=== PATIENT | female | born 1985 | race African-American/Black ===

== ENCOUNTER 2017-03-07 15:10 | Emergency (ER) | payer MEDICAID, OTHER ==
--- NOTE | 2017-03-07 15:29 | ER Document Report ---
ED Psych Disorder / Suicide - General Chief Complaint: Psych Problem Stated Complaint: VAGINAL PAIN Time Seen by Provider: 03/07/17 15:21 Mode of Arrival: Ambulatory Information source: Patient TRAVEL OUTSIDE OF THE [place] IN LAST 30 DAYS: No - HPI Patient complains to provider of: Bizarre behavior Associated symptoms: Auditory hallucinations Notes: Is a 31-year-old female who presents to the emergency room complaining of "my spirit being enslaved", stating that she is unable to control her own body, that they have "taken out my eardrums", "unholed my arm holes", and that she is unable to "use my own conscience", she is requesting a CAT scan to show brain changes that may have occurred because of these spirits taking over her mind and body, she also states she is having some pelvic pain because the voices have told her that they are "making me a harlet' - Related Data Allergies/Adverse Reactions: No Known Allergies Allergy (Verified 03/07/17 15:16) Past Medical History - General Information source: Patient - Social History Smoking Status: Unknown if Ever Smoked Drug Abuse: Marijuana Family History: Arthritis, CVA, Hypertension. denies: CAD, DM, Hyperlipidemia, Malignancy, Thyroid Disfunction Renal/ Medical History: Denies: Hx Peritoneal Dialysis Musculoskeltal Medical History: Reports Hx Musculoskeletal Trauma Traumatic Medical History: Reports: Hx Fractures - left arm - Immunizations Hx Diphtheria, Pertussis, Tetanus Vaccination: Yes Review of Systems - Review of Systems Constitutional: No symptoms reported EENT: No symptoms reported Cardiovascular: No symptoms reported Respiratory: No symptoms reported Gastrointestinal: No symptoms reported Genitourinary: No symptoms reported Female Genitourinary: Other - pelvic pressure Musculoskeletal: No symptoms reported Skin: No symptoms reported Hematologic/Lymphatic: No symptoms reported Neurological/Psychological: See HPI -: Yes All other systems reviewed and negative Physical Exam - Vital signs Vitals: Temp Pulse Resp BP Pulse Ox 99.0 F 82 20 104/59 L 96 03/07/17 15:15 03/07/17 15:15 03/07/17 15:15 03/07/17 15:15 03/07/17 15:15 Interpretation: Normal - General General appearance: Appears well, Alert - HEENT Head: Normocephalic, Atraumatic Eyes: Normal Pupils: PERRL - Respiratory Respiratory status: No respiratory distress Chest status: Nontender Breath sounds: Normal Chest palpation: Normal - Cardiovascular Rhythm: Regular Heart sounds: Normal auscultation Murmur: No - Abdominal Inspection: Normal Distension: No distension Bowel sounds: Normal Tenderness: Nontender Organomegaly: No organomegaly - Back Back: Normal, Nontender - Extremities General upper extremity: Normal inspection, Nontender, Normal color, Normal ROM , Normal temperature General lower extremity: Normal inspection, Nontender, Normal color, Normal ROM , Normal temperature, Normal weight bearing. No: Bang's sign - Neurological Neuro grossly intact: Yes Cognition: Normal Orientation: AAOx4 Nona Coma Scale Eye Opening: Spontaneous Nona Coma Scale Verbal: Oriented Nona Coma Scale Motor: Obeys Commands Nona Coma Scale Total: 15 Speech: Normal Motor strength normal: LUE, RUE, LLE, RLE Sensory: Normal - Psychological Associated symptoms: Auditory hallucinations, Labile, Paranoid, Other - delusional - Skin Skin Temperature: Warm Skin Moisture: Dry Skin Color: Normal Course - Re-evaluation Re-evalutation: 03/08/17 10:22 IVC Paperwork has been completed on patient and she will remain in the emergency room for further evaluation and treatment as recommended by mental health team - Vital Signs Vital signs: Temp Pulse Resp BP Pulse Ox 98.0 F 80 15 125/86 H 96 03/08/17 06:30 03/08/17 06:30 03/08/17 06:30 03/08/17 06:30 03/08/17 06:30 - Laboratory Result Diagrams: 03/07/17 15:30 03/07/17 15:30 Laboratory results interpreted by me: 03/07/17 03/07/17 03/07/17 15:30 15:30 15:30 MCH 26.3 L MCHC 31.9 L RDW 15.4 H Urine Ketones TRACE H Urine Urobilinogen 2.0 H Ur Leukocyte Esterase TRACE H Salicylates < 1.0 L Acetaminophen < 10 L - EKG Interpretation by Ct EKG shows normal: Sinus rhythm Rate: Normal Rhythm: NSR Discharge - Discharge Clinical Impression: Auditory hallucinations Schizophrenia Qualifiers: Schizophrenia type: paranoid schizophrenia Qualified Code(s): F20.0 - Paranoid schizophrenia Condition: Stable Disposition: PSYCH HOSP/UNIT
[2017-03-07 16:02] LABS: ABSOLUTE EOSINOPHILS # (AUTO) 0.2 10^3/uL (0.0-0.6); ABSOLUTE LYMPHOCYTES (AUTO) 2.5 10^3/uL (0.5-4.7); ABSOLUTE MONOCYTES (AUTO) 0.4 10^3/uL (0.1-1.4); ABSOLUTE NEUT (AUTO) 2.8 10^3/uL (1.7-8.2); BASOPHILS % (AUTO) 0.6 % (0-2); EOSINOPHILS % (AUTO) 3.6 % (0-6); HEMATOCRIT 38.1 % (36.0-47.0); HEMOGLOBIN 12.1 g/dL (12.0-15.5); HGB HCT DIFFERENCE -1.8; MEAN CORPUSCULAR HEMOGLOBIN 26.3 pg (27.0-33.4); MEAN CORPUSCULAR HGB CONC 31.9 g/dL (32.0-36.0); MEAN CORPUSCULAR VOLUME 83 fl (80-97); MONOCYTES % (AUTO) 6.8 % (3-13); RED BLOOD COUNT 4.61 10^6/uL (3.72-5.28); RED CELL DISTRIBUTION WIDTH 15.4 % (11.5-14.0); WHITE BLOOD COUNT 5.9 10^3/uL (4.0-10.5)
[2017-03-07 16:03] LABS: AMORPHOUS SEDIMENT,URINE TRACE /HPF; APPEARANCE,URINE CLOUDY; BILIRUBIN,URINE NEGATIVE (NEGATIVE); GLUCOSE, URINE NEGATIVE (NEGATIVE); KETONES,URINE TRACE mg/dL (NEGATIVE); LEUKOCYTE ESTERASE,URINE TRACE (NEGATIVE); NITRITE,URINE NEGATIVE (NEGATIVE); PROTEIN,URINE NEGATIVE (NEGATIVE); URINE SPECIFIC GRAVITY 1.015
[2017-03-07 16:04] LABS: ALANINE AMINOTRANSFERASE 21 U/L (9-52); ALBUMIN 4.5 g/dL (3.5-5.0); ALKALINE PHOSPHATASE 65 U/L (38-126); ANION GAP 11 (5-19); ASPARTATE AMINO TRANSFERASE 15 U/L (14-36); BILIRUBIN,DIRECT 0.2 mg/dL (0.0-0.4); BILIRUBIN,TOTAL 0.5 mg/dL (0.2-1.3); BLOOD UREA NITROGEN 9 mg/dL (7-20); CALCIUM 9.6 mg/dL (8.4-10.2); CARBON DIOXIDE 24 mmol/L (22-30); CHLORIDE 104 mmol/L (98-107); CREATININE RESULT 0.91 mg/dL (0.52-1.25); GLUCOSE 83 mg/dL (75-110); POTASSIUM 4.3 mmol/L (3.6-5.0); SODIUM 138.5 mmol/L (137-145); TOTAL PROTEIN 7.3 g/dL (6.3-8.2)
[2017-03-07 16:06] LABS: ALCOHOL < 10 mg/dL (NONE DETECTED)
[2017-03-07 16:14] LABS: URINE BARBITURATES SCREEN NEGATIVE; URINE METHADONE SCREEN NEGATIVE; URINE OPIATES LOW NEGATIVE; URINE PHENCYCLIDINE SCREEN NEGATIVE
[2017-03-07] MEDS ORDERED: FLUOXETINE HCL 20 MG/5 ML UDCUP PO SCH (17:15)
[2017-03-07] MEDS: OLANZAPINE INJ/PF 10 MG SDV IM SCH (17:44)
[2017-03-07] MEDS ORDERED: BENZTROPINE MESYLATE INJ 2 MG/2 ML AMPULE IM ONE (20:45)
[2017-03-07] MEDS ORDERED: FLUOXETINE HCL 20 MG/5 ML UDCUP PO ONE (20:45)
[2017-03-08] MEDS ORDERED: LORAZEPAM INJ 2 MG/1 ML VIAL IM ONE (05:33)
--- NOTE | 2017-03-08 07:19 | PSYCHOLOGICAL NOTE ---
Psych Note - Psych Note Psych Note: Is a 31-year-old female who presents to the emergency room complaining of "my spirit being enslaved", stating that she is unable to control her own body, that they have "taken out my eardrums", "unholed my arm holes", and that she is unable to "use my own conscience", she is requesting a CAT scan to show brain changes that may have occurred because of these spirits taking over her mind and body, she also states she is having some pelvic pain because the voices have told her that they are "making me a harlet' Patient states she has been hearing voices since 2008. She describes an event immediately before she started hearing the voices of a "popping" sound in her ear where she states "the spirts entered" her body then. She states she does not recall any high stressors at the time and was working on her computer when it happened. She continues to explain that when the "spirits" started "harassing" her she went for assistance and was put on medication. She disclosed they went away but about 5 years about she was having a difficult time at work and felt she was being "harassed" by co-workers when the voices came back. She disclosed that she "is past wanting to hurt her self or being upset about it, it is just the way it is." she states the "spirits have been taking over her body parts" such as her brain, arms, knees, and "replaced the parts with themselves." She states they have started to use her electronic by hacking into them, so she when to the storage receipt poster to see if they could stop the spirit. She states they should be able to follow the electronic trail but they told her it was spiritual and they can only help with physical. She came to [facility] in the hopes of getting a CAT scan to prove the spirits are physical so the storage receipt poster will help; "because they (the spirits or voices) are harassing me all the time." The patient states the spirites can even enter others and make then lie "so others will not find out about them." She states when this happens the spirits make others lie so it looks like she is the one lying. Patient is alert and orientate to person, place, time and circumstance. Mood is euthymic with congruent affect; patient is very pleasant, smiling, calm, and polite. Patient denies suicidal and homicidal ideation. Patient discloses auditory hallucinations with mixed delusions consistently for the last 5 years ( unmedicated) with her first psychotic brake in 2008. Thought process is currently illogical, however organized and linear. Attention and concentration are currently good. insight, judgement are poor, impulse control appears to be good. schizophrenia impression/plan: patient is recommended to IVC. Patient discloses hallucinations and delusion that she has started to act on i.e went to the storage receipt poster to have them stop the "spirits." It is unclear what the patient will continue to do now that she is acting in response to her hallucinations and delusions. Patient has been unmedicated for many years, however she discloses after her first psychotic break, medications assisted in stopping her symptoms for a few years until a social stressor started her active symptoms again. Patient is recommended for inpatient treatment. Dr. Murphy was consulted on the care and management of this patient; attending physician is in agreement with recommendations and disposition.
[2017-03-08] MEDS: FLUOXETINE HCL 20 MG/5 ML UDCUP PO SCH (09:35)
[2017-03-08] MEDS: BENZTROPINE MESYLATE INJ 2 MG/2 ML AMPULE IM SCH ×2 (09:35→19:00)
[2017-03-08] MEDS: OLANZAPINE INJ/PF 10 MG SDV IM SCH ×2 (09:35→19:00)
--- NOTE | 2017-03-08 12:59 | EKG REPORT ---
SEVERITY:- BORDERLINE ECG - SINUS RHYTHM PROBABLE LEFT ATRIAL ABNORMALITY : Confirmed by: Vero Salinas MD 08-Mar-2017 12:59:01
--- NOTE | 2017-03-08 15:44 | ER Document Report ---
Doctor's Note Notes: 03/08/17 15:44 Patient has been sleeping comfortably most of the day, she is easily aroused with verbal stimuli, she denies any complaints at present time, no events overnight, chart was reviewed including lab and vital signs, patient will remain in the emergency room on IVC until further recommendations are placement options can be made with mental health team
--- NOTE | 2017-03-09 07:46 | ER Document Report ---
ED Psych Disorder / Suicide - General Chief Complaint: Psych Problem Stated Complaint: PSYCH EVAL Time Seen by Provider: 03/07/17 15:21 Mode of Arrival: Ambulatory TRAVEL OUTSIDE OF THE [place] IN LAST 30 DAYS: No - HPI Patient complains to provider of: Bizarre behavior, Other - Deluisonal and paranoid Suicide Risk Factors: Schizophrenia Normal mood: No Associated symptoms: Flight of ideas, Manic, Paranoid, Tangential speech Similar symptoms previously: Yes Notes: Re-evaluation conducted 03/08/2017 at 1006. Patient is a 31 year old female in the ED on IVC for psychosis (delusions, paranoia). She was kept to begin medications she had not been on in a year. This morning she was sleeping. She would not wake up. She did respond to gentle shake of her leg, barely opened eyes, rolled head to the opposite side, and continued sleeping. Mom had previously informed medical staff patient had not been sleeping. This clinician and the attending ED physician agreed to allow patient to get sleep. Per patient food safety auditor and medical staff patient would not wake up to take a shower or eat breakfast. She did take her medications when administered. Diagnosis: 295.90 (F20.9) Schizophrenia Impression/Plan: Recommendation to maintain IVC status. She presented in psychosis. Medications have been administered the past 2 days after not being on any for at least a year. She slept the past couple days which she needed given mother's report patient had not been sleeping. Consulted with Dr. Murphy regarding the management and care of patient. ED Doctor in agreement with recommendations. - Related Data Allergies/Adverse Reactions: No Known Allergies Allergy (Verified 03/07/17 15:16) Past Medical History - General Information source: Patient - Social History Smoking Status: Unknown if Ever Smoked Frequency of alcohol use: Social Drug Abuse: Marijuana Family History: Arthritis, CVA, Hypertension. denies: CAD, DM, Hyperlipidemia, Malignancy, Thyroid Disfunction Renal/ Medical History: Denies: Hx Peritoneal Dialysis Musculoskeltal Medical History: Reports Hx Musculoskeletal Trauma Traumatic Medical History: Reports: Hx Fractures - left arm Surgical Hx: Negative - Immunizations Hx Diphtheria, Pertussis, Tetanus Vaccination: Yes Physical Exam - Vital signs Vitals: Temp Pulse Resp BP Pulse Ox 99.0 F 82 20 104/59 L 96 03/07/17 15:15 03/07/17 15:15 03/07/17 15:15 03/07/17 15:15 03/07/17 15:15 Course - Vital Signs Vital signs: Temp Pulse Resp BP Pulse Ox 98.8 F 62 16 104/60 98 03/09/17 07:02 03/09/17 07:02 03/09/17 07:02 03/09/17 07:02 03/09/17 07:02 - Laboratory Result Diagrams: 03/07/17 15:30 03/07/17 15:30 Laboratory results interpreted by me: 03/07/17 03/07/17 03/07/17 15:30 15:30 15:30 MCH 26.3 L MCHC 31.9 L RDW 15.4 H Urine Ketones TRACE H Urine Urobilinogen 2.0 H Ur Leukocyte Esterase TRACE H Salicylates < 1.0 L Acetaminophen < 10 L Discharge - Discharge Clinical Impression: Auditory hallucinations Schizophrenia Qualifiers: Schizophrenia type: paranoid schizophrenia Qualified Code(s): F20.0 - Paranoid schizophrenia Referrals: JENNIFER CROOKS MD [Primary Care Provider] - Follow up as needed
--- NOTE | 2017-03-09 09:49 | ER Document Report ---
Doctor's Note Notes: 03/09/17 09:47 Patient is awake and alert, pleasant and cooperative, her mother and grandmother are at bedside, patient reports that she is ready to go home, she does seem to be much more stable to do so, her mother and grandmother state they know her quite well and that she goes through periods of time where she has psychosis, and after a few days of treatment she starts to get better, they would like to take patient home and will ensure her safety as well as appropriate follow-up with mental health services, no events overnight, chart was reviewed, patient's lab and vital signs have been stable, she will be discharged today with prescriptions and mental health coordinator will set up her first appointment with mental health services as an outpatient, she was advised to return at any time with any additional concerns, patient acknowledges understanding and agreement with this plan Discharge - Discharge Clinical Impression: Auditory hallucinations Schizophrenia Qualifiers: Schizophrenia type: paranoid schizophrenia Qualified Code(s): F20.0 - Paranoid schizophrenia Disposition: HOME, SELF-CARE Additional Instructions: Schizophrenia Schizophrenia is a chemical disorder that affects how the brain functions. The exact cause is unknown, but it tends to run in families. It is NOT caused by emotional trauma. Schizophrenia causes disordered thinking, including unusual beliefs and inability to "process" happenings around the patient. Patients with schizophrenia benefit greatly from medicine. These medicines are called antipsychotics. Never stop the medicine without the doctor 's approval. Counselling may help the patient deal with his disease. Schizophrenics require a very ordered environment. Stresses and sudden changes may bring out symptoms. Drugs and alcohol abuse may become problems. Contact the counsellor or crisis line if there are thoughts of suicide or of harming others, or if you become aware of unusual thoughts or beliefs You should follow up with [facility] first things tomorrow morning at 0800. Prescriptions: Benztropine Mesylate [Cogentin 1 mg Tablet] 1 tab PO DAILY #30 tab Fluoxetine HCl [Prozac] 10 mg PO DAILY #30 capsule Olanzapine [Zyprexa] 5 mg PO BID #60 tablet Referrals: [facility] [Provider Group] - Follow up tomorrow JENNIFER CROOKS MD [Primary Care Provider] - Follow up as needed
[2017-03-09] MEDS: FLUOXETINE HCL 20 MG/5 ML UDCUP PO SCH (09:58)
[2017-03-09] MEDS: OLANZAPINE INJ/PF 10 MG SDV IM SCH (10:02)
[2017-03-09] MEDS: BENZTROPINE MESYLATE INJ 2 MG/2 ML AMPULE IM SCH (10:02)
[2017-03-09 12:20] VITALS: BP 125/76
== END 2017-03-09 12:22 | disposition home or self-care (01) ==
LOC: ER 15:10
DX: F20.0 Paranoid schizophrenia (principal); R44.0 Auditory hallucinations
CPT/HCPCS: 93005; 99285; 96372; 36415; 80307 ×4; 84703; 85025; 80053; 81001; 93010; J0515 ×2; J2060; J3490 ×2

== ENCOUNTER 2017-04-05 15:17 | Emergency (ER) | payer OTHER, MEDICAID ==
--- NOTE | 2017-04-05 16:18 | ER Document Report ---
ED Psych Disorder / Suicide - General Mode of Arrival: Ambulatory Information source: Patient, Parent TRAVEL OUTSIDE OF THE [place] IN LAST 30 DAYS: No - HPI Patient complains to provider of: Hallucinating Similar symptoms previously: Yes Recently seen / treated by doctor: Yes <ROLANDA LIMON - Last Filed: 04/05/17 19:23> <JULIANA GAY - Last Filed: 04/05/17 23:39> - General Chief Complaint: Psych Problem Stated Complaint: EDIVC Time Seen by Provider: 04/05/17 15:32 Notes: Following history given by the patient's mother: Mom states that the patient has been diagnosed with schizophrenia and is not on medication. Mom states that when she was leaving [place] today she called the patient to see if she wanted anything to eat from [email or web address]. Mom states when she arrived at their house with the food, there were 6 police cars along with a c d reactor operator parked outside their house. Mom states the patient never mentioned this to her on the phone. Mom states the patient frequently calls law-enforcement secondary to hallucinations and stating that she is being "cyber stalked and spiritually attacked". Mom states this is not the first time the patient has hallucinated. Mom states the patient was IVCd here recently and was "sedated the whole two days". Mom states the patient was discharged with medications however a problem occurred with her Medicaid and the medicine would cost $600 out of pocket so she did not get it filled. Mom then goes on to state that the patient had a miscarriage approximately 4 years ago and she began having hallucinations after that. Mom states the patient was living in [place] at the time and she began noticing behavior change after the miscarriage and she decided to have the patient come back here to live with her after she had been diagnosed with schizophrenia. Following history is given by the patient: Patient is a 31-year-old female that presents to the emergency department today for "no reason at all" according to her. Patient states that she is "still being spiritually attacked" and that her "home town Police Department, FBI, mother, and Internet crime stoppers do not believe her". Patient states that she is being cyber stalked by her ex- coworker, who the patient worked with while living in [place]. Patient states that everyone believes there is something wrong with her mentally, and no one believes that she is actually being "spiritually, but not physically attacked". Patient goes on to state that "hate is killing love" and that "love his blood" and that "blood is from Jose". Patient states that "this hospital has taken enough blood from her and she would like it back now". Patient states that these voices that she hears do not directly tell her to harm herself , but they often mention thing like " and AIDs" but she "closes those thoughts out". Patient states the voices she hears say things like "your fridge is a poop hole" frequently. Patient states she hears voices "at least 25 times a day". Patient denies any physical symptoms including chest pain, shortness of breath, nausea, vomiting, diarrhea, abdominal pain, or vision disturbances. ( ROLANDA LIMON) - Related Data Allergies/Adverse Reactions: No Known Allergies Allergy (Verified 03/07/17 15:16) Past Medical History - General Information source: Patient, Parent, [facility] Records - Social History Smoking Status: Current Every Day Smoker Cigarette use (# per day): Yes Frequency of alcohol use: Occasional Drug Abuse: Marijuana Lives with: Family Family History: Reviewed & Not Pertinent, Arthritis, CVA, Hypertension Musculoskeltal Medical History: Reports Hx Musculoskeletal Trauma Psychiatric Medical History: Reports: Hx Anxiety, Hx Depression, Hx Schizophrenia Traumatic Medical History: Reports: Hx Fractures - left arm Surgical Hx: Negative - Immunizations Hx Diphtheria, Pertussis, Tetanus Vaccination: Yes <ROLANDA LIMON - Last Filed: 04/05/17 19:23> Review of Systems - Review of Systems Constitutional: No symptoms reported EENT: No symptoms reported Cardiovascular: denies: Chest pain Respiratory: denies: Short of breath Gastrointestinal: denies: Abdominal pain, Nausea, Vomiting Genitourinary: No symptoms reported Female Genitourinary: No symptoms reported Musculoskeletal: No symptoms reported Skin: No symptoms reported Hematologic/Lymphatic: No symptoms reported Neurological/Psychological: See HPI, Hallucinations -: Yes All other systems reviewed and negative <ROLANDA LIMON - Last Filed: 04/05/17 19:23> Physical Exam <ROLANDA LIMON - Last Filed: 04/05/17 19:23> <JULIANA GAY - Last Filed: 04/05/17 23:39> - Vital signs Vitals: Temp Pulse Resp BP Pulse Ox 98.8 F 88 21 H 124/75 99 04/05/17 15:46 04/05/17 15:46 04/05/17 15:46 04/05/17 15:46 04/05/17 15:46 - Notes Notes: PHYSICAL EXAM GENERAL: Alert. No acute distress. HEAD: Normocephalic, atraumatic. EYES: Pupils equal, round, and reactive to light. Extraocular movements intact. ENT: Oral mucosa moist, tongue midline. NECK: Full range of motion. Supple. Trachea midline. LUNGS: Clear to auscultation bilaterally, no wheezes, rales, or rhonchi. No respiratory distress. HEART: Regular rate and rhythm. No murmurs, gallops, or rubs. ABDOMEN: Soft, non-tender. Non-distended. Bowel sounds present in all 4 quadrants. EXTREMITIES: Moves all 4 extremities spontaneously. No edema, radial and dorsalis pedis pulses 2/4 bilaterally. No cyanosis. NEUROLOGICAL: Alert and oriented x3. Normal speech. PSYCH: Initially patient demonstrated linear, organized thoughts which rapidly transitioned into obsession with cyber stalking, repeatedly saying that "hate is killing love", and "love is your blood, which is the blood of Jose". Patient 's obsession with blood continues stating that she has been IVC'd here in the past and that she has "given us too much of her blood already". Patient repeatedly states that she is being "spiritually attacked". Patient states that she does "feel like she could hurt someone". SKIN: Warm, dry, normal turgor. No rashes or lesions noted. (ROLANDA LIMON) Course - Laboratory Result Diagrams: 04/05/17 14:37 04/05/17 14:37 <ROLANDA LIMON - Last Filed: 04/05/17 19:23> - Laboratory Result Diagrams: 04/05/17 14:37 04/05/17 14:37 <JULINAA GAY - Last Filed: 04/05/17 23:39> - Re-evaluation Re-evalutation: 04/05/17 23:36 CBC unremarkable, CMP unremarkable, urine drug screen shows marijuana, test negative, urinalysis shows moderate blood but only 1 RBC,, salicylates, acetaminophen and alcohol are all undetectable. EKG is nonischemic. 04/05/17 23:38 Patient is psychotic, patient's delusions interfere with her activities of daily living and make her unable to function safely in the community. I do feel this patient is very much a danger to other people should she be able to get to [place] and threatened the person that she thinks is cyber stalking her. Patient is placed on involuntary commitment paperwork, mental health was consulted and agrees. I have written for Haldol 5 mg IM twice a day as well as Cogentin. Patient currently refusing her medications. (JULIANA GAY) - Vital Signs Vital signs: Temp Pulse Resp BP Pulse Ox 98.8 F 88 21 H 124/75 99 04/05/17 15:46 04/05/17 15:46 04/05/17 15:46 04/05/17 15:46 04/05/17 15:46 - Laboratory Laboratory results interpreted by me: 04/05/17 04/05/17 04/05/17 14:37 14:37 14:37 MCH 26.7 L MCHC 31.9 L RDW 16.8 H BUN 6 L Urine Blood MODERATE H Salicylates < 1.0 L Acetaminophen < 10 L - EKG Interpretation by Me Additional EKG results interpreted by me: 04/05/17 23:36 EKG shows sinus rhythm at a rate of 82, normal axis, normal intervals, no ST segment elevations or depressions, no T-wave inversions per my interpretation. ( JULIANA GAY) Discharge <ROLANDA LIMON - Last Filed: 04/05/17 19:23> <JULIANA GAY - Last Filed: 04/05/17 23:39> - Discharge Clinical Impression: Psychosis Qualifiers: Psychosis type: delusional disorder Qualified Code(s): F22 - Delusional disorders Condition: Stable Disposition: PSYCH HOSP/UNIT Scribe Attestation: 04/05/17 23:39 I personally performed the services described in the documentation, reviewed and edited the documentation which was dictated to the scribe in my presence, and it accurately records my words and actions. (JULIANA GAY) Scribe Documentation - Scribe Written by Scribe:: Yue Medel, 04/05/20171951 acting as scribe for :: Sujatha <ROLANDA LIMON - Last Filed: 04/05/17 19:23>
[2017-04-05] MEDS ORDERED: OLANZAPINE 5 MG TAB.RAPDIS PO ONE (16:24)
[2017-04-05 16:57] LABS: ABSOLUTE BASOPHILS # (AUTO) 0.1 10^3/uL (0.0-0.2); ABSOLUTE EOSINOPHILS # (AUTO) 0.1 10^3/uL (0.0-0.6); ABSOLUTE MONOCYTES (AUTO) 0.3 10^3/uL (0.1-1.4); ABSOLUTE NEUT (AUTO) 3.5 10^3/uL (1.7-8.2); EOSINOPHILS % (AUTO) 1.3 % (0-6); HEMOGLOBIN 12.8 g/dL (12.0-15.5); HGB HCT DIFFERENCE -1.6; LYMPHOCYTES % (AUTO) 34.1 % (13-45); MEAN CORPUSCULAR HEMOGLOBIN 26.7 pg (27.0-33.4); MEAN CORPUSCULAR HGB CONC 31.9 g/dL (32.0-36.0); MEAN CORPUSCULAR VOLUME 84 fl (80-97); MONOCYTES % (AUTO) 4.5 % (3-13); RED BLOOD COUNT 4.79 10^6/uL (3.72-5.28); RED CELL DISTRIBUTION WIDTH 16.8 % (11.5-14.0); SEGMENTED NEUTROPHILS % (AUTO) 59.1 % (42-78); WHITE BLOOD COUNT 5.9 10^3/uL (4.0-10.5)
[2017-04-05 17:06] LABS: APPEARANCE,URINE SLIGHTLY-CLOUDY; BILIRUBIN,URINE NEGATIVE (NEGATIVE); CALCIUM OXALATE CRYSTALS,URINE FEW /HPF; GLUCOSE, URINE NEGATIVE (NEGATIVE); KETONES,URINE NEGATIVE (NEGATIVE); LEUKOCYTE ESTERASE,URINE NEGATIVE (NEGATIVE); NITRITE,URINE NEGATIVE (NEGATIVE); PROTEIN,URINE NEGATIVE (NEGATIVE); URINE SPECIFIC GRAVITY 1.016; UROBILINOGEN,URINE NEGATIVE mg/dL (<2.0)
[2017-04-05 17:19] LABS: ALANINE AMINOTRANSFERASE 21 U/L (9-52); ALBUMIN 4.3 g/dL (3.5-5.0); ALKALINE PHOSPHATASE 69 U/L (38-126); ANION GAP 10 (5-19); ASPARTATE AMINO TRANSFERASE 14 U/L (14-36); BILIRUBIN,DIRECT 0.3 mg/dL (0.0-0.4); BILIRUBIN,TOTAL 0.5 mg/dL (0.2-1.3); BLOOD UREA NITROGEN 6 mg/dL (7-20); CALCIUM 9.8 mg/dL (8.4-10.2); CARBON DIOXIDE 24 mmol/L (22-30); CHLORIDE 105 mmol/L (98-107); CREATININE RESULT 0.82 mg/dL (0.52-1.25); GLUCOSE 87 mg/dL (75-110); POTASSIUM 3.9 mmol/L (3.6-5.0); SODIUM 138.9 mmol/L (137-145); TOTAL PROTEIN 7.4 g/dL (6.3-8.2)
[2017-04-05 17:20] LABS: ALCOHOL < 10 mg/dL (NONE DETECTED)
[2017-04-05 17:27] LABS: URINE BARBITURATES SCREEN NEGATIVE; URINE METHADONE SCREEN NEGATIVE; URINE OPIATES LOW NEGATIVE; URINE PHENCYCLIDINE SCREEN NEGATIVE
--- NOTE | 2017-04-05 17:35 | ER Document Report ---
ED Psych Disorder / Suicide - General Information source: Patient, [facility] Records TRAVEL OUTSIDE OF THE [place] IN LAST 30 DAYS: No - HPI Patient complains to provider of: Bizarre behavior, Hallucinating Onset: Other Onset was: Cannot confirm Suicide Risk Factors: Schizophrenia Similar symptoms previously: Yes <ELLIS SIFUENTES - Last Filed: 04/06/17 14:30> <TIERRA MURPHY - Last Filed: 04/26/17 19:20> - General Chief Complaint: Psych Problem Stated Complaint: EDIVC Time Seen by Provider: 04/05/17 15:32 - HPI Notes: Patient is a 31 year old female who presented to [facility] ED via EMS with complaints of psychosis. Review of patient's EMR indicates prior episodes of similar etiology. Patient this afternoon was administered Zyprexa prior to this clinician's evaluation; however has refused to take the medication stating she does not need it. Patient states she is here for about the 4th time, when she should be home and waiting for police to investigate her cyber stalking complaints. Patient provides a lengthy report of individuals in [place] stalking her and stealing her mind and body through the computers. Patient states she has made numerous reports with no results as they have been closed out each time. She states this is an ongoing problem, and often times these individuals communicate verbally to her through her computer and command her to do things. Patient states the commands are simple daily tasks and denies they are to harm herself or anyone else. Patient states she was handcuffed due to a misunderstanding. Patient states she has been seen here in the past for similar complaints, and discharged with medications she does not need. Patient continues to communicate in hyperreligious and hyperverbal manners. Patient is A&O. Mood is manic with congruent affect. Patient denies SI.HI. Delusions noted. Thought processes were fixated on her delusions regarding cyber stalking, as well as zoroastrianism. Conversational speech was pressured and fast. Intellectual abilities were estimated within average range. Attention and focus were poor. Insight, judgment, and impulse control were poor. Unspecified Schizophrenia or Other Psychotic Disorder Patient is recommended for IVC for further evaluation and disposition. At this time, it is unclear if patient's delusions are fixated; however, they are negatively effecting all domains of her life, preventing her from living safely in her home and community. I consulted with Dr. Murphy in regards to the care and management of this patient. ED MD is in agreement with disposition and recommendations. 04/06/2017 @1400: Conducted check in with patient who is a 31 year old female who is under IVC at [facility] ED. Patient continues to present with delusions. Patient adamant that her body and spirit have been "hijacked," and that she is being held here against her will. She states she is being cyber attacked and instead of that being pursued she is being held against her will. Patient was noted overnight as refusing her medications. Patient continues to talk about and relay her persecutory delusions regarding the computers. Patient becomes demanding, and labile in regards to mood and affect, and becomes tearful. Patient is A&O x3. Mood is labile with congruent affects. Patient denies SI.HI. Delusions noted. Thought processes were fixated on her delusions regarding cyber stalking, as well as zoroastrianism. Conversational speech was pressured and fast. Intellectual abilities were estimated within average range. Attention and focus were poor. Insight, judgment, and impulse control were poor. Patient is recommended for IVC for further evaluation and disposition. Patient will be referred for psychiatric placement where she may benefit from medication management and stabilization as well as psychoeducation regarding Schizophrenia. While patient does deny SI.HI, her MH symptoms are negatively effecting all domains of her life, preventing her from living safely in her home and community. I consulted with Dr. Murphy in regards to the care and management of this patient. ED MD is in agreement with disposition and recommendations. (ELLIS SIFUENTES) - Related Data Allergies/Adverse Reactions: No Known Allergies Allergy (Verified 03/07/17 15:16) Past Medical History - Social History Family History: Arthritis, CVA, Hypertension. denies: CAD, DM, Hyperlipidemia, Malignancy, Thyroid Disfunction Renal/ Medical History: Denies: Hx Peritoneal Dialysis Musculoskeltal Medical History: Reports Hx Musculoskeletal Trauma Traumatic Medical History: Reports: Hx Fractures - left arm - Immunizations Hx Diphtheria, Pertussis, Tetanus Vaccination: Yes <ELLIS SIFUENTES - Last Filed: 04/06/17 14:30> - Social History Smoking Status: Unknown if Ever Smoked <TIERRA MURPHY - Last Filed: 04/26/17 19:20> Course - Laboratory Result Diagrams: 04/05/17 14:37 04/05/17 14:37 <ELLIS SIFUENTES - Last Filed: 04/06/17 14:30> - Laboratory Result Diagrams: 04/05/17 14:37 04/05/17 14:37 <TIERRA MURPHY - Last Filed: 04/26/17 19:20> - Vital Signs Vital signs: Temp Pulse Resp BP Pulse Ox 98.4 F 64 16 104/50 L 100 04/07/17 11:02 04/07/17 11:02 04/07/17 11:02 04/07/17 11:02 04/07/17 11:02 - Laboratory Laboratory results interpreted by me: 04/05/17 04/05/17 04/05/17 14:37 14:37 14:37 MCH 26.7 L MCHC 31.9 L RDW 16.8 H BUN 6 L Urine Blood MODERATE H Salicylates < 1.0 L Acetaminophen < 10 L Discharge <ELLIS SIFUENTES - Last Filed: 04/06/17 14:30> <TIERRA MURPHY - Last Filed: 04/26/17 19:20> - Discharge Clinical Impression: Psychosis Condition: Stable Disposition: PSYCH HOSP/UNIT Referrals: JENNIFER CROOKS MD [Primary Care Provider] - Follow up as needed
[2017-04-05] MEDS ORDERED: BENZTROPINE MESYLATE INJ 2 MG/2 ML AMPULE IM SCH (19:45)
[2017-04-05] MEDS ORDERED: HALOPERIDOL LACTATE INJ 5 MG/1 ML VIAL IM SCH (19:45)
[2017-04-05] MEDS ORDERED: BENZTROPINE MESYLATE INJ 2 MG/2 ML AMPULE IM ONE (20:00)
[2017-04-05] MEDS ORDERED: HALOPERIDOL LACTATE INJ 5 MG/1 ML VIAL IM ONE (20:00)
[2017-04-05] MEDS ORDERED: HALOPERIDOL LACTATE INJ 5 MG/1 ML VIAL ONE (20:03)
--- NOTE | 2017-04-05 21:56 | EKG REPORT ---
SEVERITY:- NORMAL ECG - SINUS RHYTHM : Confirmed by: Colin Daniel MD 05-Apr-2017 21:55:21
[2017-04-05] MEDS: HALOPERIDOL LACTATE INJ 5 MG/1 ML VIAL IM SCH (23:37)
[2017-04-06] MEDS: BENZTROPINE MESYLATE INJ 2 MG/2 ML AMPULE IM SCH (10:00)
--- NOTE | 2017-04-06 19:31 | ER Document Report ---
Doctor's Note Notes: 04/06/17 19:30 Vital signs reviewed, patient has no complaints, tolerating further disposition after evaluation. GAUDENCIO
[2017-04-07] MEDS: HALOPERIDOL LACTATE INJ 5 MG/1 ML VIAL IM SCH ×2 (00:13→10:25)
[2017-04-07] MEDS ORDERED: HALOPERIDOL DECANOATE INJ 100 MG/1 ML VIAL IM PRN (09:17)
[2017-04-07] MEDS: BENZTROPINE MESYLATE INJ 2 MG/2 ML AMPULE IM SCH (10:25)
--- NOTE | 2017-04-07 10:37 | ER Document Report ---
Doctor's Note Notes: 04/07/17 10:36 31-year-old female with past medical history most likely schizophrenia who presents with delusions and auditory hallucinations. Patient is pending placement. Patient has been given Haldol according to recommendations by the psychiatric services. They have asked that I provide the Haldol 100 mg intramuscular monthly injection here this morning. This has been ordered. Vital signs are stable. Labs as recorded. Patient is currently, no acute distress.
[2017-04-07 11:03] VITALS: BP 104/50
== END 2017-04-07 11:35 ==
LOC: ER 15:17
DX: F22 Delusional disorders (principal); F29 Unspecified psychosis not due to a substance or known physiological condition
CPT/HCPCS: 93005; 99284; 96372; 36415; 80307 ×4; 84703; 85025; 80053; 81001; 93010; J0515 ×2; J1631; J1630

== ENCOUNTER 2017-12-16 14:43 | Emergency (ER) | payer MEDICAID, OTHER ==
--- NOTE | 2017-12-16 15:47 | ER Document Report ---
ED Medical Screen (RME) - General Chief Complaint: Numbness of Face Stated Complaint: LEFT EAR PAIN, FACIAL PAIN, SWELLING Time Seen by Provider: 12/16/17 15:44 Notes: Patient presents stating that she has severe right ear pain. She states this is due to spiritual forces who are attacking her ear. She also states the apple has been ripped out of her heart and that she has no shoulder blades. She states she has been told she has schizophrenia in the past but she knows that she does not have this. She states she is not interested in being treated for schizophrenia. He denies any homicidal or suicidal ideations. She states she does hear voices when she is alone. She states she was mistakenly diagnosed with schizophrenia in the past but she knows she does not have that. TRAVEL OUTSIDE OF THE [place] IN LAST 30 DAYS: No - Related Data Allergies/Adverse Reactions: No Known Allergies Allergy (Verified 03/07/17 15:16) Past Medical History - Social History Chew tobacco use (# tins/day): No Frequency of alcohol use: Occasional Drug Abuse: Marijuana Renal/ Medical History: Denies: Hx Peritoneal Dialysis Musculoskeltal Medical History: Reports Hx Musculoskeletal Trauma Psychiatric Medical History: Reports: Hx Anxiety, Hx Bipolar Disorder, Hx Depression, Hx Schizophrenia Traumatic Medical History: Reports: Hx Fractures - left arm - Immunizations Hx Diphtheria, Pertussis, Tetanus Vaccination: Yes Physical Exam - Vital signs Vitals: Temp Pulse Resp BP Pulse Ox 98.5 F 84 14 112/73 100 12/16/17 14:57 12/16/17 14:57 12/16/17 14:57 12/16/17 14:57 12/16/17 14:57 Course - Vital Signs Vital signs: Temp Pulse Resp BP Pulse Ox 98.5 F 84 14 112/73 100 12/16/17 14:57 12/16/17 14:57 12/16/17 14:57 12/16/17 14:57 12/16/17 14:57
--- NOTE | 2017-12-16 16:14 | ER Document Report ---
HPI - HPI Patient complains to provider of: right ear ringing and pain Pain Level: 5 Context: 32 yo female c/o pain and ringing in the right ear, numbness of right side of tongue like dropping sensation on the right side of tongue, 1/2 mouth is drooling, then the right ear pain starts. Onset several weeks ago. 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 She does believe that ex co workers are attacking her spirit and that she hears voices in both ears for 9 years, but does not want to be treated for it. Dx. with schizophrenia in [place] but she does not believe the dx. - REPRODUCTIVE Reproductive: DENIES: : Past Medical History - General Information source: Patient - Social History Smoking Status: Current Every Day Smoker Chew tobacco use (# tins/day): No Frequency of alcohol use: Occasional Drug Abuse: Marijuana Family History: Arthritis, CVA, Hypertension Patient has suicidal ideation: No Patient has homicidal ideation: No Renal/ Medical History: Denies: Hx Peritoneal Dialysis Musculoskeltal Medical History: Reports Hx Musculoskeletal Trauma Psychiatric Medical History: Reports: Hx Anxiety, Hx Bipolar Disorder, Hx Depression, Hx Schizophrenia Traumatic Medical History: Reports: Hx Fractures - left arm - Immunizations Hx Diphtheria, Pertussis, Tetanus Vaccination: Yes Vertical Provider Document - CONSTITUTIONAL Agree With Documented VS: Yes Exam Limitations: No Limitations General Appearance: No Apparent Distress - INFECTION CONTROL TRAVEL OUTSIDE OF THE [place] IN LAST 30 DAYS: No - HEENT HEENT: Normal ENT Exam - NECK Neck: Supple - RESPIRATORY Respiratory: Breath Sounds Normal, No Respiratory Distress - CARDIOVASCULAR Cardiovascular: Regular Rate, Regular Rhythm - GI/ABDOMEN Gastrointestinal: Abdomen Soft, Abdomen Non-Tender - MUSCULOSKELETAL/EXTREMETIES Musculoskeletal/Extremeties: MAEW - NEURO Level of Consciousness: Awake, Alert Motor/Sensory: No Motor Deficit, No Sensory Deficit - DERM Integumentary: Warm, Dry, No Rash Course - Re-evaluation Re-evalutation: 12/16/17 16:[address] Discussion [address] and Dr[address] Orozco who is written and addendum to his note, since she has had previous episodes of this disagrees with the diagnosis of schizophrenia will not take any medications I will send her to her neurologist for this symptom of paresthesias to the tongue mouth and the tinnitus. I will advise her to return to the emergency room if the symptoms get worse. I will also tell her to use her earphones on the left ear which may decrease the symptoms in the right ear. - Vital Signs Vital signs: Temp Pulse Resp BP Pulse Ox 98.5 F 84 14 112/73 100 12/16/17 14:57 12/16/17 14:57 12/16/17 14:57 12/16/17 14:57 12/16/17 14:57 Discharge - Discharge Clinical Impression: parathesia mouth, schizophrenia history Tinnitus Qualifiers: Laterality: right Qualified Code(s): H93.11 - Tinnitus, right ear Condition: Good Disposition: HOME, SELF-CARE Instructions: Numbness or Paresthesia ([facility]) Additional Instructions: See the neurologist about the ear ringing and numbness to to get to the side of her face and tongue. Return to the emergency room if symptoms worsen Use the ear apparatus for work in your left ear instead of the right ear Do not take any aspirin it may cause ringing in the ears. Referrals: JENARO TOLENTINO MD [NO LOCAL MD] - Follow up in 3-5 days
[2017-12-16 17:27] VITALS: BP 111/74
--- NOTE | 2017-12-16 19:23 | EKG REPORT ---
SEVERITY:- BORDERLINE ECG - SINUS RHYTHM NONSPECIFIC ST-T CHANGES- INFERIOR LEADS : Confirmed by: Colin Daniel MD 16-Dec-2017 19:22:27
== END 2017-12-16 17:26 | disposition home or self-care (01) ==
LOC: ER 14:43
DX: H93.11 Tinnitus, right ear (principal); R20.0 Anesthesia of skin; H92.01 Otalgia, right ear; F17.200 Nicotine dependence, unspecified, uncomplicated; Z86.59 Personal history of other mental and behavioral disorders
CPT/HCPCS: 93005; 93010; 99284

== ENCOUNTER 2017-12-19 13:29 | Emergency (ER) | payer SELFPAY ==
[2017-12-19 13:44] VITALS: BP 110/75
--- NOTE | 2017-12-19 13:56 | ER Document Report ---
ED General - General Chief Complaint: Headache Stated Complaint: HEADACHE Time Seen by Provider: 12/19/17 13:54 Mode of Arrival: Ambulatory Information source: Patient Notes: 32-year-old female presents with complaints of right facial swelling. Patient notes she was seen here approximately week ago with ear pain denies any fevers or chills notes her ear still hurts but that facial swelling to start over the past day. She admits to dental pain TRAVEL OUTSIDE OF THE [place] IN LAST 30 DAYS: No - HPI Onset: Last week Onset/Duration: Persistent, Worse Quality of pain: Achy Severity: Mild Pain Level: 1 Associated symptoms: Other - Dental pain Exacerbated by: Denies Relieved by: Denies Similar symptoms previously: Yes Recently seen / treated by doctor: Yes - Related Data Allergies/Adverse Reactions: No Known Allergies Allergy (Verified 12/19/17 13:37) Past Medical History - Social History Smoking Status: Never Smoker Cigarette use (# per day): No Chew tobacco use (# tins/day): No Smoking Education Provided: No Family History: Arthritis, CVA, Hypertension Renal/ Medical History: Denies: Hx Peritoneal Dialysis Musculoskeltal Medical History: Reports Hx Musculoskeletal Trauma Psychiatric Medical History: Reports: Hx Anxiety, Hx Bipolar Disorder, Hx Depression, Hx Schizophrenia Traumatic Medical History: Reports: Hx Fractures - left arm - Immunizations Hx Diphtheria, Pertussis, Tetanus Vaccination: Yes Review of Systems - Review of Systems Notes: REVIEW OF SYSTEMS: CONSTITUTIONAL : Denies fever, chills, or sweats. Denies recent illness. EENT: Admits to right facial swelling right ear pain right dental pain. CARDIOVASCULAR: Denies chest pain. Denies palpitations or racing or irregular heart beat. Denies ankle edema. RESPIRATORY: Denies cough, cold, or chest congestion. Denies shortness of breath, difficulty breathing, or wheezing. GASTROINTESTINAL: Denies abdominal pain or distention. Denies nausea, vomiting , or diarrhea. Denies blood in vomitus, stools, or per rectum. Denies black, tarry stools. Denies constipation. GENITOURINARY: Denies difficulty urinating, painful urination, burning, frequency, blood in urine, or discharge. FEMALE GENITOURINARY: Denies vaginal bleeding, heavy or abnormal periods, irregular periods. Denies vaginal discharge or odor. MUSCULOSKELETAL: Denies back or neck pain or stiffness. Denies joint pain or swelling. SKIN: Denies rash, lesions or sores. HEMATOLOGIC : Denies easy bruising or bleeding. LYMPHATIC: Denies swollen, enlarged glands. NEUROLOGICAL: Denies confusion or altered mental status. Denies passing out or loss of consciousness. Denies dizziness or lightheadedness. Denies headache. Denies weakness or paralysis or loss of use of either side. Denies problems with gait or speech. Denies sensory loss, numbness, or tingling. Denies seizures. PSYCHIATRIC: Denies anxiety or stress. Denies depression, suicidal ideation, or homicidal ideation. ALL OTHER SYSTEMS REVIEWED AND NEGATIVE. PHYSICAL EXAMINATION: GENERAL: Well-appearing, well-nourished and in no acute distress. HEAD: Swelling noted under the right jaw EYES: Pupils equal round and reactive to light, extraocular movements intact, conjunctiva are normal. ENT: Nares patent, oropharynx clear without exudates. Moist mucous membranes. Tenderness upon palpation of the molars on the right NECK: Normal range of motion, supple without lymphadenopathy LUNGS: Breath sounds clear to auscultation bilaterally and equal. No wheezes rales or rhonchi. HEART: Regular rate and rhythm without murmurs ABDOMEN: Soft, nontender, nondistended abdomen. No guarding, no rebound. No masses appreciated. Female : deferred Musculoskeletal: Normal range of motion, no pitting or edema. No cyanosis. NEUROLOGICAL: Cranial nerves grossly intact. Normal speech, normal gait. Normal sensory, motor exams PSYCH: Normal mood, normal affect. SKIN: Warm, Dry, normal turgor, no rashes or lesions noted. Dictation was performed using [employer] voice recognition software Physical Exam - Vital signs Vitals: Temp Pulse Resp BP Pulse Ox 98.3 F 112 H 16 110/75 97 12/19/17 13:41 12/19/17 13:41 12/19/17 13:41 12/19/17 13:41 12/19/17 13:41 Course - Re-evaluation Re-evalutation: 12/19/17 17:59 No abscess is noted upon palpation, patient has obvious dental infection but I believe the infection is under the tooth itself, I did examine her thoroughly and could not find an abscess to drain unfortunately. I will start the patient on antibiotics, she otherwise looks well is afebrile will be given pain control and follow-up with her own dentist in 1 week After performing a Medical Screening Examination, I estimate there is LOW risk for a DEEP SPACE INFECTION (e.g., VERA'S ANGINA OR RETROPHARYNGEAL ABSCESS), MENINGITIS, INTRACRANIAL HEMORRHAGE, or AIRWAY COMPROMISE, thus I consider the discharge disposition reasonable. Also, there is no evidence or peritonitis, sepsis, or toxicity. I have reevaluated this patient multiple times and no significant life threatening changes are noted. The patient and I have discussed the diagnosis and risks, and we agree with discharging home with close follow-up with the understanding that symptoms and presentations can change. We also discussed returning to the Emergency Department immediately if new or worsening symptoms occur. We have discussed the symptoms which are most concerning (e.g., changing or worsening pain, trouble swallowing or breathing, neck stiffness or fever) that necessitate immediate return. - Vital Signs Vital signs: Temp Pulse Resp BP Pulse Ox 98.3 F 112 H 16 110/75 97 12/19/17 13:41 12/19/17 13:41 12/19/17 13:41 12/19/17 13:41 12/19/17 13:41 Discharge - Discharge Clinical Impression: Dental infection, Facial swelling Condition: Stable Disposition: HOME, SELF-CARE Instructions: Dental Infection or Abscess ([facility]) Additional Instructions: Please follow-up with your dentist in 1 week or return immediately if symptoms are worsening or there are any other concerns Prescriptions: Hydrocodone/Acetaminophen [Nimitz 5-325 mg Tablet] 1 tab PO Q6 #14 tablet Penicillin V Potassium [Penicillin Vk 500 mg Tablet] 500 mg PO Q6 #40 tablet
== END 2017-12-19 14:02 | disposition home or self-care (01) ==
LOC: ER 13:29
DX: K04.7 Periapical abscess without sinus (principal); R22.0 Localized swelling, mass and lump, head; K08.89 Other specified disorders of teeth and supporting structures; H92.01 Otalgia, right ear
CPT/HCPCS: 99283

== ENCOUNTER 2017-12-22 10:21 | Emergency (ER) | payer SELFPAY ==
--- NOTE | 2017-12-22 11:05 | ER Document Report ---
ED ENT - General Chief Complaint: Toothache Stated Complaint: MOUTH PAIN/HEADACHE Time Seen by Provider: 12/22/17 10:47 Mode of Arrival: Ambulatory Information source: Patient Notes: 32-year-old female presents to ED for complaint of neck mouth and face pain all went to her ear on the right side TRAVEL OUTSIDE OF THE [place] IN LAST 30 DAYS: No - HPI Patient complains to provider of: Dental problem, Ear problem, Throat problem Onset: Other - Couple weeks Onset/Duration: Worse Quality of pain: Sharp, Other - Throbbing ringing in her ear Severity: Severe Pain Level: 5 Context: Recent Illness Location of pain: Ears, Neck, Nose, Sinus, Throat, Tooth Associated symptoms: Ear pain, Face swelling, Neck pain, Runny nose, Sinus drainage, Swollen glands Similar symptoms previously: Yes Recently seen / treated by doctor: Yes - Related Data Allergies/Adverse Reactions: No Known Allergies Allergy (Verified 12/22/17 10:24) Past Medical History - General Information source: Patient - Social History Smoking Status: Never Smoker Cigarette use (# per day): No Chew tobacco use (# tins/day): No Smoking Education Provided: No Frequency of alcohol use: None Drug Abuse: None Family History: Arthritis, CVA, Hypertension. denies: CAD, COPD, DM, Hyperlipidemia, Malignancy, Thyroid Disfunction Patient has suicidal ideation: No Patient has homicidal ideation: No - Past Medical History Cardiac Medical History: Reports: None Pulmonary Medical History: Reports: None EENT Medical History: Reports: Other - Dental Neurological Medical History: Reports: None Endocrine Medical History: Reports: None Renal/ Medical History: Reports: None Malignancy Medical History: Reports: None GI Medical History: Reports: None Musculoskeltal Medical History: Reports Hx Musculoskeletal Trauma Skin Medical History: Reports None Psychiatric Medical History: Reports: Hx Anxiety, Hx Bipolar Disorder, Hx Depression, Hx Schizophrenia Traumatic Medical History: Reports: Hx Fractures - left arm Infectious Medical History: Reports: None Surgical Hx: Negative Past Surgical History: Reports: None - Immunizations Immunizations up to date: Yes Hx Diphtheria, Pertussis, Tetanus Vaccination: Yes Review of Systems - Review of Systems Constitutional: No symptoms reported EENT: Ear pain - Right, Mouth pain - Right, Mouth swelling - Right, Dental problem - Right, Other - Some swelling to the neck Cardiovascular: No symptoms reported Respiratory: No symptoms reported Gastrointestinal: No symptoms reported Genitourinary: No symptoms reported Female Genitourinary: No symptoms reported Musculoskeletal: No symptoms reported Skin: No symptoms reported Hematologic/Lymphatic: No symptoms reported Neurological/Psychological: No symptoms reported -: Yes All other systems reviewed and negative Physical Exam - Vital signs Vitals: Temp Pulse Resp BP Pulse Ox 98.3 F 93 14 123/89 H 96 12/22/17 10:27 12/22/17 10:27 12/22/17 10:27 12/22/17 10:27 12/22/17 10:27 Interpretation: Normal - General General appearance: Appears well, Alert - HEENT Head: Normocephalic, Atraumatic Eyes: Normal Pupils: PERRL Ears: Normal External canal: Normal Tympanic membrane: Normal Sinus: Normal Nasal: Swelling, Clear rhinorrhea Mouth/Lips: Caries Mucous membranes: Normal Pharynx: Other - Swelling to right side of face down underneath the chin not all the way down to the neck. Neck: Lymphadenopathy - Respiratory Respiratory status: No respiratory distress Chest status: Nontender Breath sounds: Normal Chest palpation: Normal - Cardiovascular Rhythm: Regular Heart sounds: Normal auscultation Murmur: No - Abdominal Inspection: Normal Distension: No distension Bowel sounds: Normal Tenderness: Nontender Organomegaly: No organomegaly - Back Back: Normal, Nontender - Extremities General upper extremity: Normal inspection, Nontender, Normal color, Normal ROM , Normal temperature General lower extremity: Normal inspection, Nontender, Normal color, Normal ROM , Normal temperature, Normal weight bearing. No: Bang's sign - Neurological Neuro grossly intact: Yes Cognition: Normal Orientation: AAOx4 Morrison Coma Scale Eye Opening: Spontaneous Nona Coma Scale Verbal: Oriented Morrison Coma Scale Motor: Obeys Commands Morrison Coma Scale Total: 15 Speech: Normal Motor strength normal: LUE, RUE, LLE, RLE Sensory: Normal - Psychological Associated symptoms: Normal affect, Normal mood - Skin Skin Temperature: Warm Skin Moisture: Dry Skin Color: Normal Course - Re-evaluation Re-evalutation: 12/22/17 11:[address] Lara because he had seen her on 12/19/2017. Will do a CAT scan soft tissue neck with IV contrast. 12/22/17 13:[address] lara for results of the CT and lab results. Patient to continue on Pen-Vee K as previously prescribed. Patient was treated with Jonancy 1 in the emergency room. She was discharged home with a syringe of viscous lidocaine for her dental pain. Patient did take Tylenol or Motrin as needed for pain. Patient verbalized understanding of these instructions. - Vital Signs Vital signs: Temp Pulse Resp BP Pulse Ox 98.9 F 82 16 119/76 99 12/22/17 13:52 12/22/17 13:52 12/22/17 13:52 12/22/17 13:52 12/22/17 13:52 - Laboratory Result Diagrams: 12/22/17 11:25 12/22/17 11:25 Laboratory results interpreted by me: 12/22/17 12/22/17 11:25 11:25 RDW 15.0 H BUN 6 L AST 13 L - Diagnostic Test Radiology reviewed: Image reviewed, Reports reviewed Discharge - Discharge Clinical Impression: Facial swelling, Dental infection Condition: Stable Disposition: HOME, SELF-CARE Instructions: Family Physicians / Practices Additional Instructions: TOOTHACHE: Your pain is due to dental decay. The tooth must be repaired in order for you to feel better. You will, therefore, be referred to a dentist. We do not have dentists on the staff at [facility]. Severe swelling or drainage around a tooth usually means a dental abscess. This also requires evaluation and treatment by the dentist, but antibiotics may be prescribed while awaiting dental treatment. You should be rechecked immediately if you develop major swelling of the face, increasing pain, a lump in the jaw or gums, headache, difficulty swallowing, or fever. ORAL NARCOTIC MEDICATION: You have been given a Jonancy while in the ED for pain control. This medication is a narcotic. It's best taken with food, as nausea can result if taken on an empty stomach. Don't operate machinery or drive within six hours of taking this medication. Do not combine this medicine with alcohol, or with any medication which can cause sedation (such as cold tablets or sleeping pills) unless you get permission from the physician. Narcotics tend to cause constipation. If possible, drink plenty of fluids and eat a diet high in fiber and fruits. Please be aware that prescription narcotics also have the potential for abuse. People become addicted to these medications because of the general sense of wellbeing that they induce. This feeling along with a significant reduction in tension, anxiety, and aggression provides a stimulating seductive quality to these drugs. Once your pain is under control, we encourage you to discard your unused narcotics. PENICILLIN V K: Continue your Penicillin VK as was previously prescribed take until it is completed. You have been given a prescription for Penicillin VK. Your physician has determined that this is the best antibiotic for your condition. Pen VK can be taken with meals, however more of the antibiotic gets into the bloodstream if it's taken on an empty stomach. Penicillin usually has no side effects. However, allergy to penicillins is common. If you have had an allergic reaction to any drug of the penicillin family, you should never take any other penicillin. Notify your doctor at once if you develop hives, itching, swelling, faintness, or shortness of breath. Gargle with some warm salt and soda water 1 quart of water 1 tablespoon of salt 1 teaspoon of baking soda Mixed 3 ingredients together and boil for 1 minute Placed in a covered quart jar Use 1/2 ounce of cold solution to gargle 3 times a day FOLLOW-UP CARE: Call the dentist today or tomorrow and schedule an appointment to have the tooth fixed or pulled. You have been referred for follow-up care to the dentists listed below. Call the dentists office for an appointment as you were instructed or within the next two days. If you experience worsening or a significant change in your symptoms, notify the physician immediately or return to the Emergency Department at any time for re-evaluation. [facility] [address] [place], [place] [facility] [address] [place] [address] [facility] [address] [facility] [address] [facility] [place] [id number] [facility]. [email or web address] [facility] [address] [place] [address] Thursday- 8:00am to 5:00 pm [facility]. Charges based on income and family size and accepts Medicare, Medicaid, and Insurances Will pull molars [facility], [place] [id number] Hours of Operation 8:00 am - 4:30 pm weekdays The following dental offices accept Medicaid: [facility] Dr. Pro Dr. Marshall Dr. Hood Dr. Nix Héctor [place], [place], and [facility] oral [facility] Dr. Jones ([place]) Dr. Mccoy ([place]) [facility] Drs. Schwartz ([place]) Dr. Rahman ([place]) [facility] Dr. Paris ([place]) Drs. Dobbins and ([place]) Medicaid Care Line Forms: Elevated Blood Pressure
[2017-12-22 11:38] LABS: ABSOLUTE EOSINOPHILS # (AUTO) 0.1 10^3/uL (0.0-0.6); ABSOLUTE LYMPHOCYTES (AUTO) 1.6 10^3/uL (0.5-4.7); ABSOLUTE MONOCYTES (AUTO) 0.4 10^3/uL (0.1-1.4); ABSOLUTE NEUT (AUTO) 3.9 10^3/uL (1.7-8.2); BASOPHILS % (AUTO) 0.4 % (0-2); EOSINOPHILS % (AUTO) 1.8 % (0-6); HEMATOCRIT 39.3 % (36.0-47.0); HEMOGLOBIN 13.2 g/dL (12.0-15.5); MEAN CORPUSCULAR HEMOGLOBIN 27.4 pg (27.0-33.4); MEAN CORPUSCULAR HGB CONC 33.5 g/dL (32.0-36.0); MEAN CORPUSCULAR VOLUME 82 fl (80-97); MONOCYTES % (AUTO) 6.4 % (3-13); PLATELET COUNT 301 10^3/uL (150-450); RED BLOOD COUNT 4.81 10^6/uL (3.72-5.28); SEGMENTED NEUTROPHILS % (AUTO) 64.4 % (42-78); TOTAL CELLS COUNTED % (AUTO) 100 %
[2017-12-22] MEDS ORDERED: HYDROCODONE/ACETAMINOPHEN 5-325 MG TABLET PO ONE (11:51)
[2017-12-22 11:52] LABS: ALANINE AMINOTRANSFERASE 16 U/L (9-52); ALBUMIN 4.4 g/dL (3.5-5.0); ALKALINE PHOSPHATASE 55 U/L (38-126); ANION GAP 9 (5-19); ASPARTATE AMINO TRANSFERASE 13 U/L (14-36); BILIRUBIN,DIRECT 0.3 mg/dL (0.0-0.4); BILIRUBIN,TOTAL 0.3 mg/dL (0.2-1.3); BLOOD UREA NITROGEN 6 mg/dL (7-20); CARBON DIOXIDE 29 mmol/L (22-30); CHLORIDE 101 mmol/L (98-107); GLUCOSE 106 mg/dL (75-110); POTASSIUM 4.2 mmol/L (3.6-5.0); SODIUM 138.8 mmol/L (137-145); TOTAL PROTEIN 7.3 g/dL (6.3-8.2)
--- NOTE | 2017-12-22 13:05 | RADIOLOGY REPORT (SQ) ---
EXAM DESCRIPTION: CT SOFT TISSUE NECK WITH COMPLETED DATE/TIME: 12/22/2017 12:40 pm REASON FOR STUDY: facial and neck swelling to right of face COMPARISON: None. TECHNIQUE: Post IV contrasted scanning from skull base through lung apices with review of bone, soft tissue and lung windows. Reconstructed coronal and sagittal MPR images reviewed. All images stored on PACS. All CT scanners at this facility use dose modulation, iterative reconstruction, and/or weight based d osing when appropriate to reduce radiation dose to as low as reasonably achievable (ALARA). [facility]: Dose Right [facility]: CareDose [facility]: Dose Right [facility]: Teradose 4D [facility]: [email or web address] CONTRAST TYPE AND DOSE: contrast/concentration: Isovue 370.00 mg/ml; Total Contrast Delivered: 74.0 ml; Total Saline Delivered: 40.0 ml RENAL FUNCTION: None required. The patient is less than 50 years old. RADIATION DOSE: CT Rad equipment meets quality standard of care and radiation dose reduction techniq ues were employed. CTDIvol: 7.9 mGy. DLP: 229 mGy-cm. . LIMITATIONS: None. FINDINGS: Advanced dental caries along the right lower 2nd molar, with periapical tooth root lucency worrisome for abscess best shown on sagittal reconstruction image 27. There is right mandibular ang le region facial cellulitis with skin thickening and subcutaneous edema. Several enlarged right subm andibular lymph nodes are present, 1.4 x 0.7 cm, 1.7 x 0.9 cm, likely reactive. No airway compromise . No gross soft tissue abscess in the floor of the mouth. SKULL BASE: Inferior brain parenchyma in the field of view unremarkable. MAJOR SALIVARY GLANDS: No solid or cystic masses. No inflammatory changes. LYMPHADENOPATHY: As above MUCOSAL MASSES OR ASYMMETRY: No mucosal masses or asymmetry. LARYNX/CORDS: No abnormal findings. VASCULAR STRUCTURES: The major vessels are patent. LUNG APICES: Clear. BONES: Intact. THYROID: Normal size. No masses. PARANASAL SINUSES: Clear. OTHER: No other significant finding. IMPRESSION: Advanced dental caries right lower 2nd molar with periapical tooth root lucency, facial cellulitis, and adenopathy at the angle of the mandible. TECHNICAL DOCUMENTATION: JOB ID: [id number] Quality ID # [id number]: Final reports with documentation of one or more dose reduction techniques (e.g., Au tomated exposure control, adjustment of the mA and/or kV according to patient size, use of iterative reconstruction technique) 2010 [employer] [employer]- All Rights Reserved Reading location - IP/workstation name: [email or web address]
[2017-12-22] MEDS ORDERED: LIDOCAINE 2% VISCOUS SOLN 20 ML UDCUP PO ONE (13:33)
[2017-12-22 13:56] VITALS: BP 119/76
== END 2017-12-22 13:56 | disposition home or self-care (01) ==
LOC: ER 10:21
DX: K04.7 Periapical abscess without sinus (principal); R22.0 Localized swelling, mass and lump, head; R51 Headache; K08.89 Other specified disorders of teeth and supporting structures; H92.09 Otalgia, unspecified ear; M54.2 Cervicalgia; R09.89 Other specified symptoms and signs involving the circulatory and respiratory systems
CPT/HCPCS: 99283; 36415; 84703; 85025; 80053; 70491; J3490

== ENCOUNTER 2017-12-24 20:18 | Emergency (ER) | payer SELFPAY ==
[2017-12-24] MEDS ORDERED: BUPIVACAINE HCL 0.5 % INJ/PF 30 ML SDV INJ ONE (23:47)
[2017-12-24] MEDS ORDERED: ACETAMINOPHEN 325 MG TABLET PO ONE (23:47)
--- NOTE | 2017-12-24 23:47 | ER Document Report ---
HPI - HPI Pain Level: 5 Context: Patient is a 32-year-old female who returns emergency department complaining of right lower jaw swelling. Patient states that she was seen here initially at the end of November and on December 22 for this complaint. She states that she was started on penicillin approximately 5 days ago for facial swelling and toothache. She states that she was seen here on December [address] where she [address] a CT done and told she had a dental abscess but there was no drainage done at that time. She states that she returned tonight because she feels like the swelling should have gone down by now she denies any fevers or chills, difficulty breathing, difficulty swallowing, any weakness, dizziness, syncope, nausea, vomiting, chest pain, neck swelling Patient has an established follow-up with her dentist on December 25. She has been taking her penicillin as directed. - REPRODUCTIVE Reproductive: DENIES: : - DERM Skin Color: Normal Past Medical History - Social History Smoking Status: Former Smoker Chew tobacco use (# tins/day): No Frequency of alcohol use: Occasional Family History: Arthritis, CVA, Hypertension. denies: CAD, COPD, DM, Hyperlipidemia, Malignancy, Thyroid Disfunction Patient has suicidal ideation: No Patient has homicidal ideation: No Renal/ Medical History: Denies: Hx Peritoneal Dialysis Musculoskeltal Medical History: Reports Hx Musculoskeletal Trauma Psychiatric Medical History: Reports: Hx Anxiety, Hx Bipolar Disorder, Hx Depression, Hx Schizophrenia Traumatic Medical History: Reports: Hx Fractures - left arm - Immunizations Immunizations up to date: Yes Hx Diphtheria, Pertussis, Tetanus Vaccination: Yes Vertical Provider Document - CONSTITUTIONAL Agree With Documented VS: Yes Notes: PHYSICAL EXAM GENERAL: Alert, interacts well. HEENT: NCAT, pale conjunctiva, extraocular movements intact, pupils PERRL. MMM, Uvula midline. Airway patent. No evidence of tonsillar enlargement, peritonsillar abscess, retropharyngeal abscess. Patient does have superficial jaw swelling of the right lower jaw with fluctuance on the posterior jaw within her mouth along the borders of teeth 1 and 2. NECK: Full range of motion. Supple. Trachea midline. No evidence of Austen's angina, lymphadenopathy LUNGS: Clear to auscultation bilaterally, no wheezes, rales, or rhonchi. No respiratory distress. HEART: Regular rate and rhythm. No murmurs, gallops, or rubs. NEUROLOGICAL: Alert and oriented x4. Normal speech. PSYCH: Normal affect, normal mood. SKIN: Warm, dry, normal turgor. No rashes or lesions noted. - INFECTION CONTROL TRAVEL OUTSIDE OF THE [place] IN LAST 30 DAYS: No Course - Re-evaluation Re-evalutation: Patient is a 32-year-old female is hemodynamically stable, no acute distress and afebrile. Airway patent without any evidence of retropharyngeal or peritonsillar abscess. No evidence of Austen's angina. Review the CT scan done on December 22 does show evidence of a periodontal abscess that is superficial and was not drained. Patient was anesthetized and sites drained for approximately 10 cc of purulent material. Patient educated to keep her appointment with her dentist given that reviewed the CT scan on December 22 shows superficial inflammation. Did send her home with a prescription for clindamycin if her dentist feels that is an appropriate switch. Otherwise discussed with her indications to return to the emergency department and referral for oral surgery. - Vital Signs Vital signs: Temp Pulse Resp BP Pulse Ox 99.0 F 102 H 18 114/73 97 12/24/17 20:35 12/24/17 20:35 12/24/17 20:35 12/24/17 20:35 12/24/17 20:35 Discharge - Discharge Clinical Impression: Facial swelling, Dental infection Condition: Stable Disposition: HOME, SELF-CARE Instructions: Clindamycin (OM) Additional Instructions: Your abscess was drained today. Please continue take your penicillin as directed. Please follow-up with your dentist as directed tomorrow morning. Please return if you develop fever greater than 101, vomiting, difficulty breathing or swallowing, or any other symptoms that are concerning to you. For pain you should take ibuprofen 600 mg every 6 hours as needed. Prescriptions: Clindamycin HCl 450 mg PO TID 7 Days capsule
[2017-12-25 00:54] VITALS: BP 118/64
== END 2017-12-25 00:53 | disposition home or self-care (01) ==
LOC: ER 20:18
DX: K04.7 Periapical abscess without sinus (principal); R22.0 Localized swelling, mass and lump, head; Z87.891 Personal history of nicotine dependence
CPT/HCPCS: 41800; 99282; J3490